=== PATIENT | female | born 1975 | race Asian ===

== ENCOUNTER → 2021-02-08 08:33 | Outpatient (BNVA) | payer SELFPAY | DX: Z02.1 Encounter for pre-employment examination (principal) ==

== ENCOUNTER 2022-10-09 07:13 | Outpatient (REF) | payer OTHER, MEDICAID, SELFPAY ==
[2022-10-09 08:09] LABS: Alanine Aminotransferase 16 U/L (0-31); Albumin Level 4.3 g/dL (3.5-5.0); Alkaline Phosphatase 66 U/L (39-117); Anion Gap 10 (12-20); Aspartate Amino Transferase 22 U/L (5-31); Bilirubin Total 0.7 mg/dL (0.0-1.0); Blood Urea Nitrogen 8 mg/dL (9-16); Carbon Dioxide 28 mmol/L (22-29); Chloride 105 mmol/L (96-108); Cholesterol 213 mg/dL; Estimated Glomerular Filt Rate > 60; Glucose Random 99 mg/dL (60-115); HDL Cholesterol 71 mg/dL; LDL Cholesterol Calculated 126 mg/dl; Sodium 139 mmol/L (135-145); Total Protein 6.9 g/dL (6.5-8.0); Triglycerides 83 mg/dL
[2022-10-11 15:13] LABS: TS Negative Control Passed; TS Panel A 0; TS Panel B 0; TS Positive Control Passed; TSpotTB Negative (Negative)
== END 2022-10-09 07:14 | disposition home or self-care (01) ==
LOC: HO.LAB 07:13
PROVIDERS: PCP Hospitalist; Visit Provider Hospitalist
DX: E78.2 Mixed hyperlipidemia (principal); Z11.1 Encounter for screening for respiratory tuberculosis
CPT/HCPCS: 36415; 80053; 80061; 86481

== ENCOUNTER 2023-02-27 08:43 | Outpatient (AMB) | payer OTHER, SELFPAY ==
--- NOTE | 2023-02-27 08:59 | MHC.OFFVIS ---
Intake Vital Signs 02/27/23 09:00 Height 5 ft 2 in Weight 134 lb BMI 24.5 BP 106/68 Intake Visit Reasons: New patient Annual Intake Note: Period stopped in may thinks she is starting menopause. 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 She is also going to school online for her bsn. She is healthy she eats well she perceives herself is overweight because she used to be thinner before her last child. She does have some urinary incontinence if she laughs or coughs. She wears pads to manage it. She denied abnormal Pap smears but on further questioning she remembers some laser treatment being done to her cervix many years ago in the [facility] She is sexually active with her of 27 years they generally use the pullout method and if she got she would have the baby. She has not had a period since May and she thinks she is in the menopausal zone She tries to eat well she does [place] and cycles and other activities. She has 0 worries about STIs and declines testing. She has a breast mass in her right breast that she says is been there for years and was evaluated and she was told it was a cyst it comes and goes in size. But it is kind of always there. Questioning during the exam patient did admit to some stress incontinence.. PFSH Female Reproductive History Menstrual Age of Menarche: 10 Duration of menses: 6-7 days control method: none Total pregnancies: 5 Full term: 4 Number of Living Children: 4 Ab induced: 1 Physical Exam Vital Signs: Last Vital Signs BP 106/68 02/27/23 09:00 BMI result Body Mass Index 24.5 Const General: healthy appearing, comfortable, no acute distress, well developed and alert Nutritional Appearance: average body habitus Orientation/consciousness: patient oriented x3 Limitations: no limitations HEENT Head: Yes normocephalic Neck Neck: Yes normal visual inspection Chest Other: Firm mass at 01:00 o'clock in right breast approximately 3 cm slightly irregular. Patient states it has been there for a long time and it gets smaller and larger over time. Chest palpation & inspection: normal inspection of the chest Breast/axilla inspection: normal inspection of the breasts and normal inspection of the axillae Breast/axilla palpation: normal palpation of the breasts and normal palpation of the axillae Resp Effort & Inspection: normal respiratory effort GI Inspection: Yes normal to inspection, No Abdominal wall edema and No distended Palpation (GI): Soft to palpation and nontender Other: There is some descensus of anterior vaginal wall. Mucosa is pink patient does have some incontinence since the of her last child 14 years ago Rea. Her cervix is multiparous and shows evidence of a past LEEP though patient did not remember it as such. Moderate tone with Kegel able to increased tone with each repetition and hold contraction. General: Yes bladder normal to palpation External Female Exam: normal external appearance and normal appearance of the urethra Speculum Exam - Vagina: normal appearance of the vagina, normal palpation and normal vaginal discharge Speculum Exam - Cervix: normal appearance of the cervix, normal palpation and nontender Bimanual exam- vagina & uterus: normal bimanual exam, normal palpation, uterine size normal, bladder normal to palpation, consistency normal, normal palpation, uterine mobility normal, uterine shape normal, No Cervical tenderness present, non-tender and no cervical motion tenderness Bimanual Exam- Adnexa, other: normal adnexae, no masses, normal and No adnexal tenderness Neuro General: patient oriented x3 Assessment & Plan Assessment & Plan (1) Well woman exam with routine gynecological exam: Code(s): Z01.419 - Encounter for gynecological examination (general) (routine) without abnormal findings (2) Cervical cancer screening: Comment: Patient denies abnormal Paps except for something 20+ years ago patient remembers a laser cervix has appearance of LEEP. Code(s): Z12.4 - Encounter for screening for malignant neoplasm of cervix (3) Primary stress urinary incontinence: Code(s): N39.3 - Stress incontinence (female) (male) (4) Prolapse of anterior vaginal wall: Code(s): N81.10 - Cystocele, unspecified (5) Breast mass, right: Comment: Patient states it has been there for a long time and she was told it was a cyst . States size fluctuates over time Code(s): N63.10 - Unspecified lump in the right breast, unspecified quadrant (6) Breast cancer screening: Code(s): Z12.39 - Encounter for other screening for malignant neoplasm of breast Plan -----Discussed in this visit the following: healthy balanced diet, regular and consistent exercise, getting recommended health screens, doing the best she can for her particular health concerns, kegel exercises, pap smear screening and followup recommendations, mammography screening and SBE, normal changes in cycles in her life stage--- . ---I Had the patient and demonstrate a Kegel contraction at the end of the exam, ordered in order to explain a Kegel exercise, and instructed the patient on doing the same exercises several times a day with increasing strength each time. One useful to is to imagine pursestring around the vagina and pulling it tight and upwards as if raising the vagina, or imagining that her tight muscles are on the 1st floor and she is trying to pull them up to the 5th floor and then slowly letting them go down. To try to do these several times a day but focus on the quality and the strength of the exercises more than the quantity, and tried isolate just those muscles and not involve other body parts. --I have placed an order for diagnostic mammogram and an ultrasound of the right breast. -in addition to teaching the Kegel's I offered and placed a referral for pelvic floor therapy. -reviewed her past history she does not think she had a procedure other than the laser to her cervix but it may have been a LEEP it was many years ago, in [facility]. Pap was done. She says her more recent Paps have all been normal - Orders: Orders MM tomosynthesis diagnostic BI Today N63.10 - Unspecified lump in the right breast, unspecified quadrant, Z12.39 - Encounter for other screening for malignant neoplasm of breast US breast RT complete Today N63.10 - Unspecified lump in the right breast, unspecified quadrant, Z12.39 - Encounter for other screening for malignant neoplasm of breast Pap Smear Today Z01.419 - Encounter for gynecological examination (general) (routine) without abnormal findings Referrals Pelvic Manufacturing Engineering Technologist Referral M62.89 - Other specified disorders of muscle, N39.3 - Stress incontinence (female) (male), N81.10 - Cystocele, unspecified Coding Level of Care Code New Pt Prev Care 40-64y(97162) Diagnoses Well woman exam with routine gynecological exam Z01.419 Cervical cancer screening Z12.4 Primary stress urinary incontinence N39.3 Prolapse of anterior vaginal wall N81.10 Breast mass, right N63.10 Breast cancer screening Z12.39
[2023-02-27 09:00] VITALS: BP 106/68; BMI 24.5
== END 2023-02-27 09:50 | disposition home or self-care (01) ==
LOC: HO.HWS 08:43
PROVIDERS: PCP Hospitalist; Visit Provider Advanced Practice Midwife
DX: Z01.419 Encounter for gynecological examination (general) (routine) without abnormal findings (principal); Z12.4 Encounter for screening for malignant neoplasm of cervix; N39.3 Stress incontinence (female) (male); N81.10 Cystocele, unspecified; N63.10 Unspecified lump in the right breast, unspecified quadrant; Z12.39 Encounter for other screening for malignant neoplasm of breast
CPT/HCPCS: 99386

== ENCOUNTER 2023-02-27 08:43 | Outpatient (REF) | payer OTHER, SELFPAY ==
[2023-03-05 04:43] LABS: HPV mRNA E6/E7 rflx Not Detected (Not Detected)
== END 2023-02-27 08:44 | disposition home or self-care (01) ==
LOC: HO.LNP 08:43
PROVIDERS: PCP Hospitalist; Visit Provider Advanced Practice Midwife
DX: Z01.419 Encounter for gynecological examination (general) (routine) without abnormal findings (principal); Z12.39 Encounter for other screening for malignant neoplasm of breast; Z12.4 Encounter for screening for malignant neoplasm of cervix; N39.3 Stress incontinence (female) (male); N81.10 Cystocele, unspecified; N63.12 Unspecified lump in the right breast, upper inner quadrant
CPT/HCPCS: 87624; 88142

== ENCOUNTER 2023-03-27 07:50 | Outpatient (REF) | payer OTHER, SELFPAY ==
--- NOTE | ~2023-03-27 | MM_ITS ---
EXAMINATION: MM DIAGNOSTIC DIGITAL BREAST TOMOSYNTHESIS, BILATERAL US BREAST LIMITED, BILATERAL MAMMOGRAPHY: CLINICAL INFORMATION: 47-year-old female, palpable abnormality right breast 1:00 axis. Patient states it has been there, getting smaller and larger and then smaller over time. COMPARISON: Mammography: Priors could not be obtained by the time of this examination. We will attempt to locate priors from [facility] for comparison. TECHNIQUE: Digital breast tomosynthesis is performed in both the craniocaudal and mediolateral oblique views along with computer-aided detection (CAD). Synthesized 2D images are generated from the tomosynthesis. A second full-field 3-D left MLO was also included. FINDINGS: The breasts are heterogeneously dense, which may obscure small masses (ACR BI-RADS breast composition Category c). Right breast demonstrates at least 4 circumscribed isodense masses, predominantly upper and medial aspects. There are 3 directly abutting circumscribed oval masses immediately subjacent to the palpable marker placed by the technologist at the 1:00 axis, likely correlating with the palpable foci of concern. In the left breast, there is an oval circumscribed low-density mass measuring approximately 8 mm, 6 cm from the nipple at the approximate 1:00 axis. The above masses will be evaluated by ultrasound. See below. Otherwise, no suspicious calcifications, areas of architectural distortion, or suspicious masses are identified. ULTRASOUND: CLINICAL INFORMATION: Palpable abnormality right breast 1:00 axis, with probable correlating circumscribed isodense masses at the 11:00 axis of the right breast. COMPARISON: No prior ultrasound. Correlation with mammography performed concurrently. TECHNIQUE: Targeted bilateral sonographic evaluation was performed using a high frequency linear transducer. Attention was paid to the region of palpable concern right breast 1:00 axis, as well as the 10:00 axis spanning the 5:00 axis on the right, in the 1:00 axis spanning the 5:00 axis on the left. Selected archived documentation. FINDINGS: RIGHT BREAST: There is no suspicious mass identified. In the 11:00 axis of the right breast, 3 cm from the nipple, there is a 5 x 6 x 4 cm simple cyst, with the directly abutting bilobed 11 x 6 x 7 cm simple cyst. These likely represent the foci of palpable concern and correlate well. In addition, there is a large simple cyst in the 12:00 axis right breast, 3 cm from the nipple, spanning 2.6 x 1.4 x 2.6 cm. There is a 7 mm simple cyst in the 3:00 axis, 4 cm from the nipple. These findings are benign. LEFT BREAST: There is no suspicious mass is identified. In the 2:00 axis, 4 cm from the nipple, there is a simple cyst measuring 4 x 5 x 4 mm. This is benign. There is a similar simple cyst in the 1:00 axis, 6 cm from the nipple measuring 3 mm in diameter. MM/MM tomosynthesis diagnostic BI IMPRESSION: Bilateral simple cysts in both breasts as described above, which are benign. The right breast 11:00 simple cysts likely represent an correlate with the foci of palpable concern. There are no suspicious abnormalities in either breast. Findings were discussed with the patient by the interpreting radiologist. If we obtain prior examinations from [facility], this report will be addended. Otherwise, the the patient should return to routine annual screening. OVERALL ASSESSMENT: Mammography: BI-RADS 2 - Benign Findings Ultrasound: BI-RADS 2 - Benign Findings RECOMMENDATION: 1 year F/U This patient's information was entered into a reminder system with a target due date for their next mammogram.
== END 2023-03-27 07:51 | disposition home or self-care (01) ==
LOC: HO.MAMMO 07:50
PROVIDERS: PCP Hospitalist; Visit Provider Advanced Practice Midwife
DX: N63.12 Unspecified lump in the right breast, upper inner quadrant (principal)
CPT/HCPCS: 76642; 77062; 77066

== ENCOUNTER → 2023-03-27 08:00 | Outpatient (BNV) | payer OTHER, SELFPAY | PROVIDERS: PCP Hospitalist; Visit Provider Radiology Diagnostic Radiology | DX: N60.01 Solitary cyst of right breast (principal); N60.02 Solitary cyst of left breast | CPT/HCPCS: 76642; 77062; 77066 ==

== ENCOUNTER 2023-04-01 11:46 | Outpatient (AMB) | payer OTHER, SELFPAY ==
--- NOTE | 2023-04-01 11:51 | MHC.OFFVIS ---
Intake Vital Signs 04/01/23 12:03 Height 5 ft 2 in Weight 135 lb BMI 24.7 BP 82/70 L Blood Pressure Location Lt brachial Position Sitting Pulse 87 Intake Visit Reasons: Colonoscopy Screening Intake Note: Patient new consult for 1st pre colonoscopy screening. Patient denies any GI issues. 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 Accompanied by: Self / Same As Patient Allergies cat dander Allergy (Mild, Verified 04/01/23 11:50) Hives Medication List - Last Reconciled 04/01/23 by Madelin Thao PA-C cetirizine (Zyrtec) 10 mg PO DAILY PRN diphenhydramine HCl (Benadryl Allergy) 25 mg PO TID PRN HPI HPI Comments History of Present Illness Details A 47-year-old female referred for index screening colonoscopy she has no GI concerns She has normal bowel pattern She has a good appetite PFSH Family History (Updated 04/01/23 @ 12:02 by Anny Flaherty) Mother Colon polyp Social History (Updated 04/01/23 @ 12:03 by Madelin Thao PA-C) Household Members: Spouse and Family Household Members Other:: 4 children Alcohol intake: never Patient Tobacco Use Status: Never used Tobacco Current occupational status: employed Current occupation: [employer] [place] Female Reproductive History Menstrual Age of Menarche: 10 Physical Exam Const General: cooperative, healthy appearing, comfortable and no acute distress Orientation/consciousness: patient oriented x3 Limitations: no limitations Eyes Sclerae: sclerae normal Resp Effort & Inspection: normal respiratory effort and able to speak in complete sentences Auscultation: clear to auscultation bilaterally, no rales, no rhonchi and no wheezes Cardio Rate: regular rate Rhythm: regular rhythm Heart sounds: S1 normal heart sound present and S2 normal heart sound present Skin General skin exam: no rashes or lesions noted Neuro General: patient oriented x3 Extrem General: Yes full ROM Psych Appearance: grossly normal and well kempt Mental Status: mental status grossly normal Speech and movement: Normal speech and movement present and Clear speech present Affect: normal affect Attitude: cooperative Thought process: Normal thought process present Thought content: Normal thought content present Assessment & Plan Assessment & Plan (1) Encounter for screening colonoscopy: Comment: No GI complaints No Fam hx- CRC Disc procedure/ rare risks/ prep/ need for escort Code(s): Z12.11 - Encounter for screening for malignant neoplasm of colon Plan Index screen- wants FEMALE pls Orders: Orders Colonoscopy - GI Use Only Today Z12.11 - Encounter for screening for malignant neoplasm of colon Medications: New bisacodyl (Dulcolax (bisacodyl)) Take 4 tablets by mouth at 12:00pm the day before your procedure. 20 mg (4 x 5 mg) PO ONCE 1 day 4 tabs 0RF colonoscopy prep Z12.11 - Encounter for screening for malignant neoplasm of colon polyethylene glycol 3350 (Miralax) Take as directed by mouth the day before your procedure. 238 grams PO ONCE 1 day PRN 238 grams 0RF laxative effect Patient Instructions: Index screening colonoscopy MG split prep Coding Level of Care Code New Pt Level 3 (94689) Diagnoses Encounter for screening colonoscopy Z12.11 Time Spent (min) 30
[2023-04-01 12:03] VITALS: BP 82/70; PULSE 87; BMI 24.7
== END 2023-04-01 14:16 | disposition home or self-care (01) ==
PROVIDERS: PCP Hospitalist; Visit Provider Physician Assistant
DX: Z01.818 Encounter for other preprocedural examination (principal); Z12.11 Encounter for screening for malignant neoplasm of colon
CPT/HCPCS: S0285

== ENCOUNTER → 2023-04-01 11:46 | Outpatient (BNVA) | payer OTHER, SELFPAY | PROVIDERS: PCP Hospitalist; Visit Provider Physician Assistant ==

== ENCOUNTER 2023-05-20 06:14 | Outpatient (REF) | payer OTHER, SELFPAY ==
[2023-05-22 17:38] LABS: TS Negative Control Passed; TS Panel A 0; TS Panel B 1; TS Positive Control Passed; TSpotTB Negative (Negative)
== END 2023-05-20 06:15 | disposition home or self-care (01) ==
LOC: HO.LAB 06:14
PROVIDERS: PCP Hospitalist; Visit Provider Hospitalist
DX: Z11.1 Encounter for screening for respiratory tuberculosis (principal)
CPT/HCPCS: 36415; 86481

== ENCOUNTER 2023-08-29 12:16 | Day surgery (SDC) | payer OTHER, SELFPAY ==
[2023-08-27 10:40] VITALS: BMI 24.7
--- NOTE | 2023-08-28 10:16 | P.CONAN_ITS ---
HPI - Anesthesia Eval Consult details Narrative: 48yo F for Colonoscopy PMFSH Active Problems Active Problems: All Active Problems (Updated 08/27/23 @ 10:39 by Patrica Garcia RN) Encounter for screening colonoscopy (Acute) Breast cancer screening (Acute) Breast mass, right (Acute) Prolapse of anterior vaginal wall (Acute) Primary stress urinary incontinence (Acute) Cervical cancer screening (Acute) Well woman exam with routine gynecological exam (Acute) Past Medical History Medical History (Updated 08/27/23 @ 10:39 by Patrica Garcia RN) Prolapse of anterior vaginal wall Stress incontinence of urine Family History Family History (Updated 04/01/23 @ 12:02 by Anny Flaherty) Mother Colon polyp Surgical History Surgical History (Updated 08/27/23 @ 10:41 by Patrica Garcia RN) Surgical history unknown Social History Social History (Updated 04/01/23 @ 12:03 by Madelin Thao PA-C) Household Members: Spouse and Family Household Members Other:: 4 children Alcohol intake: never Patient Tobacco Use Status: Never used Tobacco Current occupational status: employed Current occupation: [employer] Meds Allergies Allergy/AdvReac Type Severity Reaction Status Date / Time cat dander Allergy Mild Hives Verified 04/01/23 11:50 Home Medications Medication Instructions Recorded Confirmed Last Taken Type cetirizine 10 mg capsule (Zyrtec) 10 mg PO DAILY PRN Allergic 02/27/23 08/27/23 Unknown History Symptoms diphenhydramine HCl 25 mg tablet 25 mg PO TID PRN Allergic Symptoms 02/27/23 08/27/23 Unknown History (Benadryl Allergy) Exam Height,Weight and Vital Signs: Height 5 ft 2 in Weight 61.235 kg Assessment and Plan Assessment Anesthesia Assessment: Chart Reviewed
--- NOTE | 2023-08-29 12:18 | HO.ANESPROP2 ---
[facility] Active Problems Active Problems: All Active Problems (Updated 08/27/23 @ 10:39 by Patrica Garcia RN) Encounter for screening colonoscopy (Acute) Breast cancer screening (Acute) Breast mass, right (Acute) Prolapse of anterior vaginal wall (Acute) Primary stress urinary incontinence (Acute) Cervical cancer screening (Acute) Well woman exam with routine gynecological exam (Acute) Past Medical History Medical History (Updated 08/27/23 @ 10:39 by Patrica Garcia RN) Prolapse of anterior vaginal wall Stress incontinence of urine Patient : No Family History Family History (Updated 04/01/23 @ 12:02 by Anny Flaherty) Mother Colon polyp Family history of problems with anesthesia: No Surgical History Surgical History (Updated 08/27/23 @ 10:41 by Patrica Garcia RN) Surgical history unknown History of Problems with Anesthesia: No Social History Social History (Updated 04/01/23 @ 12:03 by Madelin Thao PA-C) Household Members: Spouse and Family Household Members Other:: 4 children Alcohol intake: never Patient Tobacco Use Status: Never used Tobacco Advance Directives: No Advance Directives Information Provided: Yes Current occupational status: employed Current occupation: [employer] [place] Meds Allergies Allergy/AdvReac Type Severity Reaction Status Date / Time cat dander Allergy Mild Hives Verified 04/01/23 11:50 Active Medications: Current Medications Ondansetron HCl (Ondansetron Hcl 4 Mg/2 Ml Vial) 4 mg IVPUSH ONCE PRN PRN Reason: Nausea and Vomiting Home Medications Medication Instructions Recorded Confirmed Last Taken Type cetirizine 10 mg capsule (Zyrtec) 10 mg PO DAILY PRN Allergic 02/27/23 08/27/23 Unknown History Symptoms diphenhydramine HCl 25 mg tablet 25 mg PO TID PRN Allergic Symptoms 02/27/23 08/27/23 Unknown History (Benadryl Allergy) Exam Height,Weight and Vital Signs: Height 5 ft 2 in Weight 61.235 kg Airway Mallampati Class: III TM Dist: <=3cm Neck ROM: Full Loose/Missing/Broken Teeth: No (rrr) Heart: rrr Lungs: clear Assessment and Plan Final Anesthetic Review Family History of Problems with Anesthesia: No History of Problems with Anesthesia: No NPO: Yes ASA Class: I Final Preanesthetic Review: No Changes in Pt Med Stat, Meds/Allgs Chart Reviewed and Consent Obtained/Reviewed Patient Risk: Low Procedure Risk: Low Anesthetic Plan Anesthetic Plan: MAC: Disposition: Standard PACU
[2023-08-29 12:23] VITALS: BMI 27.1
[2023-08-29 12:33] VITALS: BP 109/73; PULSE 85; RESP 16; TEMP 36.2; O2SAT 96
--- NOTE | 2023-08-29 12:34 | MHC.SHP ---
Pre-Procedural Eval Section A - 24 Hr Update-Section A only Date of Service: 08/29/23 Section B - Complete if H&P > 30 days Chief Complaint: Encounter for screening for malignant neoplasm of Relevant Family History (Specify if Yes): No Relevant Social History: None Present Medications: see Short Stay Collaborative assessment Medical History: No relevant PMH History of Previous Operations: No relevant previous surgery Allergies: Allergies Allergy/AdvReac Type Severity Reaction Status Date / Time cat dander Allergy Mild Hives Verified 04/01/23 11:50 Review of Systems Review of Systems Comment: Ten point ROS negative Exam Exam Comment: Gen appear: No acute distress HEENT: no icterus Chest: No overt resp distress Abd: soft, nontender, nondistended Psych: Stable affect, answering questions appropriately Neuro: A/Ox3 noted to move all extremities spontaneously Ext: no peripheral edema Plan Diagnosis/Plan: Unchanged I have reviewed the history and physical and performed a pertinent physical examination on my patient. No changes have occurred unless specified. Time Spent With Patient Time: Total time managing care of this patient today ____ minutes.
[2023-08-29 13:27] VITALS: BP 94/52; PULSE 74; RESP 17; TEMP 36.3; O2SAT 95
[2023-08-29 13:42] VITALS: BP 105/66; PULSE 75; RESP 16; O2SAT 98
[2023-08-29 13:54] VITALS: BP 104/68; PULSE 72; RESP 16; TEMP 36.4; O2SAT 98
--- NOTE | 2023-08-29 14:06 | P.OP_ITS ---
Operative Note Operative Note Date of Service: 08/29/23 Narrative: Procedure: Colonoscopy Indication: Screening Endoscopist: Mylene Cunha MD Anesthesia Provider: Dr Kody Art Anesthesia type: MAC Instrument: Olympus [id number]-[id number] Consent: Indication, risks vs benefits, and alternatives were discussed with the patient who gave written informed consent to proceed. EKG, pulse, pulse oximetry and blood pressure were monitored throughout the procedure. Please see anesthesia flowsheet. Procedure: The patient was brought to the procedure room and placed in the left lateral decubitus position. IV medications were administered by the anesthesia provider in attendance. A digital rectal exam was performed which was normal. A distal attachment cap was affixed to the tip of the colonoscope which was then inserted through the anus and advanced through the colon to the cecum at 75 cm,and terminal ileum. Appendiceal orifice and ileocecal valve were identified. Mucosa was carefully examined under high definition white light as the instrument was slowly withdrawn in a retrograde panoramic fashion. Retroflexion was performed in rectum. The procedure was not difficult. There were no immediate obvious complications. The quality of the prep was BBPS: 2+3+3 = adequate Withdrawal time 12 minutes. Limitations: No limitations. Findings: Mucosa: Normal to cecum and terminal ileum. Protruding lesions: * 1 semi-pedunculated polyp of size 8 mm in rectum. Cold snare polypectomy was performed. The polyp was completely removed and retrieved. * Medium internal hemorrhoids without stigmata of recent bleeding. Impression: 1. Normal colon and terminal ileum mucosa 2. Total of 1 polyp removed 3. External and internal hemorrhoids Recommendations: - Follow path results. - Repeat colonoscopy in 5 years if polyp is an adenoma due to size.
== END 2023-08-29 14:15 | disposition home or self-care (01) ==
PROVIDERS: PCP Hospitalist; Visit Provider Internal Medicine
PROC: 0DJD8ZZ Inspection of Lower Intestinal Tract, Via Natural or Artificial Opening Endoscopic (ICD-10-PCS; CPT 45378; principal; 2023-08-29 13:40)
DX: Z12.11 Encounter for screening for malignant neoplasm of colon (principal); Z83.719 Family history of colon polyps, unspecified; D12.8 Benign neoplasm of rectum; K64.8 Other hemorrhoids; K64.4 Residual hemorrhoidal skin tags; Z79.899 Other long term (current) drug therapy
CPT/HCPCS: 45385; 88305; J2704

== ENCOUNTER → 2023-08-29 12:16 | Outpatient (BNV) | payer OTHER, SELFPAY | PROVIDERS: PCP Hospitalist; Visit Provider Internal Medicine | DX: Z12.11 Encounter for screening for malignant neoplasm of colon (principal); K63.5 Polyp of colon; K64.8 Other hemorrhoids | CPT/HCPCS: 45385 ==

== ENCOUNTER 2023-10-11 07:00 | Outpatient (REF) | payer OTHER, SELFPAY ==
[2023-10-11 08:08] LABS: Alanine Aminotransferase 18 U/L (0-31); Albumin Level 4.2 g/dL (3.5-5.0); Alkaline Phosphatase 73 U/L (39-117); Anion Gap 10 (12-20); Aspartate Amino Transferase 22 U/L (5-31); Bilirubin Total 0.4 mg/dL (0.0-1.0); Blood Urea Nitrogen 11 mg/dL (9-16); Calcium 9.4 mg/dL (8.4-10.2); Carbon Dioxide 30 mmol/L (22-29); Chloride 105 mmol/L (96-108); Cholesterol 198 mg/dL (<200); Estimated Glomerular Filt Rate > 60; Glucose Random 97 mg/dL (60-115); HDL Cholesterol 73 mg/dL (>40); LDL Cholesterol Calculated 110 mg/dL (<100); Potassium 3.4 mmol/L (3.3-5.1); Sodium 142 mmol/L (135-145); Total Protein 7.5 g/dL (6.5-8.0); Triglycerides 79 mg/dL (<150)
== END 2023-10-11 07:01 | disposition home or self-care (01) ==
LOC: HO.LAB 07:00
PROVIDERS: PCP Hospitalist; Visit Provider Hospitalist
DX: E78.2 Mixed hyperlipidemia (principal)
CPT/HCPCS: 36415; 80053; 80061

== ENCOUNTER → 2024-07-23 11:45 | Outpatient (BNVA) | payer OTHER, SELFPAY | PROVIDERS: PCP Hospitalist; Visit Provider Physician Assistant Medical | DX: S39.012A Strain of muscle, fascia and tendon of lower back, initial encounter (principal); X50.1XXA Overexertion from prolonged static or awkward postures, initial encounter | CPT/HCPCS: 99203 ==

== ENCOUNTER → 2024-07-28 08:13 | Outpatient (BNVA) | payer OTHER, SELFPAY | PROVIDERS: PCP Hospitalist; Visit Provider Physician Assistant Medical | DX: S39.012A Strain of muscle, fascia and tendon of lower back, initial encounter (principal); X50.1XXA Overexertion from prolonged static or awkward postures, initial encounter | CPT/HCPCS: 99213 ==

== ENCOUNTER → 2024-08-20 07:51 | Outpatient (BNVA) | payer OTHER, SELFPAY | PROVIDERS: PCP Hospitalist; Visit Provider Physician Assistant Medical | DX: S39.012D Strain of muscle, fascia and tendon of lower back, subsequent encounter (principal); X50.1XXD Overexertion from prolonged static or awkward postures, subsequent encounter | CPT/HCPCS: 99213 ==

== ENCOUNTER → 2024-09-11 14:47 | Outpatient (BNVA) | payer OTHER, SELFPAY | PROVIDERS: PCP Hospitalist; Visit Provider Physician Assistant Medical | DX: S39.012D Strain of muscle, fascia and tendon of lower back, subsequent encounter (principal); X50.1XXD Overexertion from prolonged static or awkward postures, subsequent encounter | CPT/HCPCS: 99213 ==

== ENCOUNTER → 2024-09-25 14:17 | Outpatient (BNVA) | payer OTHER, SELFPAY | PROVIDERS: PCP Hospitalist; Visit Provider Physician Assistant Medical | DX: S39.012D Strain of muscle, fascia and tendon of lower back, subsequent encounter (principal); X50.1XXD Overexertion from prolonged static or awkward postures, subsequent encounter | CPT/HCPCS: 99213 ==

== ENCOUNTER → 2024-10-06 08:13 | Outpatient (BNVA) | payer OTHER, SELFPAY | PROVIDERS: PCP Hospitalist; Visit Provider Physician Assistant Medical | DX: S39.012D Strain of muscle, fascia and tendon of lower back, subsequent encounter (principal); X50.1XXD Overexertion from prolonged static or awkward postures, subsequent encounter; Z02.79 Encounter for issue of other medical certificate | CPT/HCPCS: 99213 ==